=== PATIENT | male | born 1945 | race Caucasian/White ===

== ENCOUNTER 2022-07-10 22:07 | Emergency (ER) | payer OTHER ==
[2022-07-11 00:26] VITALS: BP 130/85; PULSE 75; RESP 16; TEMP 98; BMI 35.6
[2022-07-11 02:05] LABS: POTASSIUM 4.3 mmol/L (3.5-5.1)
[2022-07-11 02:08] LABS: ALBUMIN 3.2 g/dl (3.4-5.0); BLOOD UREA NITROGEN 30.2 mg/dL (7-18)
[2022-07-11 02:11] LABS: CREATININE 1.7 mg/dL (0.55-1.3)
[2022-07-11 02:12] LABS: TOT PROT 7.1 g/dl (6.4-8.2)
[2022-07-11 02:14] LABS: HEMATOCRIT 32.9 % (35.4-49); HEMOGLOBIN 11.1 GM/dL (11.7-16.9); MCH 30.4 pg (25.7-33.7); MCHC 33.9 g/dl (32.0-35.9); MEAN CELL VOLUME 89.8 fl (80-96); MEAN PLT VOLUME 8.5 fl (7.5-11.1); PLATELET COUNT 211 10^3/uL (134-434); RBC 3.67 M/mm3 (4.00-5.60); WHITE BLOOD COUNT 8.1 K/mm3 (4.0-10.0)
[2022-07-11 02:39] LABS: BILIRUBIN,TOTAL 0.4 mg/dL (0.2-1); CALCIUM 9.6 mg/dL (8.5-10.1)
== END 2022-07-11 03:13 | disposition home or self-care (01) ==
LOC: FER 22:07
DX: R33.9 Retention of urine, unspecified (principal); R53.1 Weakness; E86.0 Dehydration; D64.9 Anemia, unspecified
CPT/HCPCS: 36415; 80053; 81003; 85027; 87086; 99283-25